=== PATIENT | female | born 2000 | race Caucasian/White ===

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

== ENCOUNTER 2021-05-25 09:17 | Inpatient (IN) | payer BC ==
[~2021-05-25] VITALS: Ht 154.9 cm; Wt 76.2 kg
--- NOTE | ~2021-05-25 | P ---
[facility] [place] [address] PROCEDURE REPORT Name: YANET HELMS Room #: 436-P [facility] IN M.R.#: [id number] Admission: 05/25/21 Attend Phys: Cyn Sheldon Discharge: 05/28/21 Date of : 01 Report #: [id number] THIS REPORT FOR: cc: Otoniel Regalado MD, Logan F. MD McElhinney, Christian C. MD ~ cc: Cyn Sheldon MD DATE OF SERVICE: 05/28/2021 PROCEDURE PERFORMED: Colonoscopy. HISTORY OF PRESENT ILLNESS: The patient is a 20-year-old female with a history of cerebral palsy who has chronic constipation, was having increasing abdominal pain, difficulty with bowel movements. CT scan of the abdomen and pelvis was essentially negative. The patient has never had a colonoscopy before. Plan is for colonoscopy today. DESCRIPTION OF PROCEDURE: The risks and benefits of the procedure were explained to the patient as well as her parents, those risks including but not limited to bleeding, perforation and the risk of sedation. They understood these risks and gave informed consent. Sedation was given using propofol per anesthesia. Next, a digital rectal exam was initially performed, which was normal. Next, using a standard Olympus colonoscope, the scope was placed in the patient's anus and advanced under direct vision to the cecum. The overall prep was excellent. The cecum and ileocecal valve were normal in appearance. Terminal ileum was intubated and normal in appearance. Ascending, transverse, descending and sigmoid colon were all normal. In the distal rectum, a single solitary clean white base ulcer approximately 5 mm in size was noted. No evidence of bleeding. Retroflexion, no abnormalities were noted in the anal canal. The scope was then withdrawn and the procedure terminated. The patient tolerated the procedure well. IMPRESSION: single small distal rectal ulcer. This may be secondary to constipation and solitary rectal ulcer syndrome or may be secondary to recent enema trauma. No evidence of bleeding. RECOMMENDATIONS: 1. The patient will start a bowel regimen of MiraLax on a daily basis and titrate as needed. 2. A script for Analpram was given today to be used b.i.d. for the next week in the rectum to the father today. The patient may be discharged home. [address] [address] PROCEDURE REPORT Name: YANET HELMS Room #: 436-P [facility] IN .R.#: [id number] Admission: 05/25/21 Attend Phys: Cyn Sheldon Discharge: 05/28/21 Date of : 01 Report #: [id number] Thank you for allowing me to participate in her care. By: [id number] [id number] Himanshu Thorpe MD /nt
[~2021-05-25 09:17] MED LIST: BACLOFEN 10MG T10 MG PO; DIAZEPAM 5 MG5 M1 PO; ZOLOFT 50 MG TA50 M1 PO
[2021-05-25 09:35] VITALS: BP 125/76
[2021-05-25 10:52] LABS: HEMOGLOBIN 11.7 gm/dL (12.0-15.0); RDW 13.7 % (10.5-14.5)
[2021-05-25 10:57] LABS: HEMATOCRIT 33.8 % (37.0-47.0); MCH 29.5 pg (26.0-34.0); MCHC 34.6 g/dL (28.0-37.0); MCV 85.5 fL (80.0-100.0); PLATELET COUNT 203 thou/uL (150-400); RBC 3.95 mil/uL (4.20-5.00); WBC 6.9 thou/uL (4.0-11.0)
[2021-05-25 11:03] LABS: CALCIUM 8.7 mg/dL (8.5-10.1); CREATININE 0.8 mg/dL (0.6-1.0); POTASSIUM 3.3 mmol/L (3.5-5.1)
--- NOTE | 2021-05-25 11:06 | NUR ---
VERBAL ORDER- RAJAN HINDS TO GIVE SQ LIDOCAINE WITH PERIPHERAL IV START/AND PER HOSPITAL POLICY. 3CC OF 1% LIDOCAINE GIVEN PRIOR TO IV STICK
[2021-05-25 13:21] LABS: ABSOLUTE NEUTROPHILS 3.2 thou/uL (1.4-8.2); ATYPICAL LYMPHS 10 %
[2021-05-25 13:22] LABS: ANISOCYTOSIS 1+
[2021-05-25 16:12] VITALS: BP 128/73
[2021-05-25 16:49] VITALS: BP 115/64
[2021-05-25 16:50] VITALS: BP 115/64
[2021-05-25 19:58] VITALS: BP 103/50
--- NOTE | 2021-05-25 21:28 | NUR ---
ASSESSMENT COMPLETED. PT WITH DAD IN ROOM. SHE IS CONVERSATIONAL. REPORTS ABOUT 4/10 PAIN-ACHY,TO UPPER AREA OF STOMACH -BUT SAYS IT'S NOT THAT BAD TO BE NEEDING PRN MORPHINE. SHE IS TOLERATING CLEARS WITHOUT ANY NAUSEA OR VOMITING. REPORTS PASSING FLATUS.BOWEL SOUNDS PRESENT X 4. AFEBRILE.WANTED A BREAK FROM SCDS.CALL LIGHT WITHIN REACH, IVF INFUSING. WILL CONTINUE WITH POC TILL EOS.
[2021-05-26 08:02] VITALS: BP 118/76
--- NOTE | 2021-05-26 09:23 | NUR ---
ASSESSMENT: CM REVIEWED CHART AND SPOKE WITH PATIENT AND HER FATHER AT THE BEDSIDE. PT WAS ADMITTED DUE TO ABDOMINAL PAIN AND COMPLAINTS OF CONSTIPATION. PTS FATHER IS AT THE BEDSIDE. PT HAS HX OF CEREBRAL PALSY AND LIVES AT HOME WITH HER FAMILY. PT REPORTS HAVING A RAMP TO ENTER THE HOME. PT HAS A WHEELCHAIR AT HOME, COMMODE, SLIDING BOARD. PT REPORTS THAT HER FAMILY IS THERE TO ASSIST HER NEEDED AND SHE NORMALLY FUNCTIONS WELL AT HOME. PT DENIES HAVING AND HX OF HH/SNF. CM DISCUSSED ROLE. CM WILL CONTINUE TO FOLLOW TO ASSIST NEEDED.
--- NOTE | 2021-05-26 12:54 | 2DMMODE ---
[facility] [place] [address] 2 D/M-MODE ECHOCARDIOGRAM Name: YANET HELMS Room #: 436-P ADM IN M.R.#: [id number] Admission: 05/25/21 Attend Phys: Cyn Sheldon Discharge: Date of : 01 Report #: [id number] THIS REPORT FOR: cc: Otoniel Regalado MD, Logan F. MD Park, Jin S. MD ~ APPROVED REPORT Study performed: 05/26/2021 12:11:59 EXAM: Comprehensive 2D, Doppler, and color-flow Echocardiogram Patient Location: Bedside Room #: [facility] Status: routine BSA: 1.75 HR: 108 bpm BP: 118/76 mmHg Rhythm: Sinus Tach Other Information Study Quality: Good Indications Splenic infarct. 2D Dimensions IVSd: 7.94 (7-11mm) LVOT Diam: 18.72 (18-24mm) LVDd: 44.38 mm PWd: 8.45 (7-11mm) LVDs: 28.35 (25-40mm) Left Atrium: 24.66 (27-40mm) Aortic Root: 27.99 mm Aortic Valve AoV Peak Darrion.: 1.37 m/s AO Peak Gr.: 7.51 mmHg LVOT Max P.46 mmHg LVOT Max V: 1.06 m/s DANI Vmax: 2.12 cm2 Mitral Valve E/A Ratio: 1.3 MV Decel. Time: 156.13 ms MV E Max Darrion.: 0.98 m/s MV A Darrion.: 0.76 m/s [facility] [address] [place] [address] 2 D/M-MODE ECHOCARDIOGRAM Name: YANET HELMS Room #: 436-P [facility] IN .R.#: [id number] Admission: 05/25/21 Attend Phys: Cyn Brooks Discharge: Date of : 01 Report #: [id number] MV PHT: 45.28 ms Pulmonary Valve PV Peak Darrion.: 1.04 m/s PV Peak Gr.: 4.35 mmHg Pulmonary Vein P Vein S: 0.49 m/s P Vein D: 0.49 m/s P Vein S/D Ratio: 1.00 Tricuspid Valve TR Peak Darrion.: 1.87 m/s RAP Estimate: 5.00 mmHg TR Peak Gr.: 14.00 mmHg PA Pressure: 19.00 mmHg Left Ventricle The left ventricle is normal size. There is normal LV segmental wall motion. There is normal left ventricular wall thickness. Left ventricular systolic function is normal. LVEF is 60-65%. Right Ventricle The right ventricle is normal size. The right ventricular systolic function is normal. Atria The left atrium size is normal. The right atrium size is normal. Aortic Valve The aortic valve is normal in structure. No aortic regurgitation is present. There is no aortic valvular stenosis. Mitral Valve The mitral valve is normal in structure. There is no mitral valve regurgitation noted. No evidence of mitral valve stenosis. Tricuspid Valve The tricuspid valve is normal in structure. Trace tricuspid regurgitation. Pulmonic Valve The pulmonary valve is normal in structure. There is no pulmonic valvular regurgitation. Great Vessels The aortic root is normal in size. The ascending aorta is normal in [facility] [address] [place] [address] 2 D/M-MODE ECHOCARDIOGRAM Name: YANET HELMS Room #: 436-[facility] IN .R.#: [id number] Admission: 05/25/21 Attend Phys: Cyn Brooks Discharge: Date of : 01 Report #: [id number] size. IVC is normal in size and collapses >50% with inspiration. Pericardium There is no pericardial effusion. <Conclusion> The left ventricle is normal size. There is normal left ventricular wall thickness. Left ventricular systolic function is normal. The right ventricle is normal size. The left atrium size is normal. The aortic valve is normal in structure. There is no mitral valve regurgitation noted. <ELECTRONICALLY SIGNED> By: Ty García MD 05/26/21 [id number] Ty García MD /INF
[2021-05-26 13:10] VITALS: BP 118/76
--- NOTE | 2021-05-26 18:07 | NUR ---
ASSUMED CARE OF PT AT 0700 THIS MORNING. PT WAS ADMITTED LAST NIGHT FOR SEVERE ABD CRAMPING AND PAIN. PT HAD NO CHANGES SINCE REPORT LAST NIGHT. ASSESSMENTS AND REPORT NOTED IN CHART AND OTHERWISE UNREMARKABLE. PT'S GI SPECIALIST STATED THAT SHE NEEDS A SUPPOSITORY AND IF THE SUPPOSITORY DOESN'T WORK TO GO AHEAD WITH THE ENEMA. PEG WAS GIVEN PO WITH APPLE JUICE. CALL LIGHT AND OTHER NEEDS ARE WITHIN REACH. MEDS AND TX GIVEN NEEDED AND SCHEDULED. WILL MONITOR AND NOTE ANY CHANGES.
[2021-05-26 19:38] VITALS: BP 127/81
[2021-05-26 20:58] VITALS: BP 139/83
--- NOTE | 2021-05-27 01:34 | NUR ---
ASSESSMENT COMPLETED. PARENT IN ROOM. PT ALERT AND ORIENTED X 4. MAKES NEEDS KNOWN. PT GETS UP TO THE BATHROOM USING W/CHAIR, ASSIST X 1. SHE HAD A FEVER AT THE START OF SHIFT, TYLENOL GIVEN, TEMP RECHECK TWICE AFTERWARDS SHOWS A RESOLVE.PT REPORTS PAIN TO ABDOMEN IN THE RANGE OF 4/10. OFFERED TAP WATER ENEMA BUT PT RELUCTANT WANTING TO WAIT. SHE FINALLY REPORTS GETTING A SMALL BM. SHE IS PASSING GAS. NO OVERT SIGNS OF DISTRESS AT THIS TIME. RESTING QUIETLY IN ROOM.WILL CONTINUW WITH POC TILL EOS.
[2021-05-27 08:27] VITALS: BP 127/79
--- NOTE | 2021-05-27 10:53 | NUR ---
ASSUMED PT CARE THIS AM. PT IS ALERT & ORIENTED X4. PT HAS IV SITE ON R FA SALINE LOCKED. PT IS USES WHEELCHAIR. PT PARENTS AT THE BEDSIDE. PT HAD BM TODAY. COLLECTED UA AND SENT TO LAB. PT WILL HAVE KUB PER REFERRAL CLERK. PT IS ON ROOM AIR. NO C/O OF NAUSEA AND VOMITING. PT TOLERATED DIET WELL. WILL CONTINUE TO MONITOR PT. FOLLOW POC.
[2021-05-27 11:09] LABS: URINE BILIRUBIN NEGATIVE (Negative); URINE BLOOD 2+ (Negative); URINE CLARITY CLEAR; URINE COLOR YELLOW; URINE GLUCOSE-RANDOM* NEGATIVE (Negative); URINE KETONES NEGATIVE (Negative); URINE LEUKOCYTES NEGATIVE (Negative); URINE NITRITE NEGATIVE (Negative); URINE PROTEIN (DIPSTICK) NEGATIVE (Negative); URINE SPECIFIC GRAVITY <= 1.005 (1.005-1.035)
[2021-05-27 11:21] LABS: BACTERIA 1-9 Few /HPF (None Seen); CASTS None Seen /LPF (None Seen); CRYSTALS None Seen /LPF (None Seen); SQUAMOUS 0-3 Few /LPF (0-3); URINE RBC 1-2 Rare /HPF (NONE SEEN); URINE WBC 1-5 Rare /HPF (NONE SEEN)
[2021-05-27 12:40] LABS: HEMATOCRIT 36.6 % (37.0-47.0); MCH 28.4 pg (26.0-34.0); MCHC 32.8 g/dL (28.0-37.0); MCV 86.7 fL (80.0-100.0); RBC 4.22 mil/uL (4.20-5.00); RDW 13.9 % (10.5-14.5)
[2021-05-27 16:53] VITALS: BP 133/84
[2021-05-27 17:25] LABS: URINE BLOOD 3+ (Negative); URINE CLARITY CLOUDY; URINE COLOR YELLOW; URINE GLUCOSE-RANDOM* NEGATIVE (Negative); URINE KETONES TRACE (Negative); URINE NITRITE-REFLEX NEGATIVE (Negative); URINE PROTEIN (DIPSTICK) NEGATIVE (Negative); URINE UROBILINOGEN >= 8.0 E.U./dl (0.2-1.0)
[2021-05-27 17:29] LABS: URINE LEUKOCYTES-REFLEX 1+ (Negative)
[2021-05-27 17:36] LABS: ICTOTEST (BILI CONFIRMATORY) Negative (Negative); URINE BILIRUBIN NEGATIVE (Negative)
[2021-05-27 17:45] LABS: BACTERIA-REFLEX >30 Many /HPF (None Seen); SQUAMOUS 4-10 Moderate /LPF (0-3); URINE RBC 1-2 Rare /HPF (NONE SEEN); URINE WBC-REFLEX 0-5 Rare /HPF (0-5)
[2021-05-27 19:30] VITALS: BP 132/85
--- NOTE | 2021-05-28 02:03 | NUR ---
Assumed care of pt at 1900. Pt aox4, parents at bedside. GLENN assessment complete. pt continuing bowel prep d/t colonscopy in am and will be NPO at [place]. No complains of nausea at this time. C/O abdominal discomfort, pt reports tolerable level. pt has baclofen pump to RLQ. Pt uses bsc and is having liquid brown stools. All needs met, no other needs at this time. call light in reach.
--- NOTE | 2021-05-28 04:16 | NUR ---
PT DENIED PAIN SO FAR.OBSERVED PT'S DAD HELPING HER TO THE BSC,OFFERED TO TAKE PT EACH TIME SHE NEEDS TO GO, HER DAD DECLINED.PT DENIED PAIN SO FAR.PT NPO SINCE [place].PT STILL HAVING INTERMITTENT LIQUID BROWN STOOL.PT RESTING ON HER BED AT THIS TIME.CALL LIGHT WITHIN REACH.
[2021-05-28 08:00] VITALS: BP 119/68
--- NOTE | 2021-05-28 10:05 | NUR ---
ASSUMED PT CARE THIS AM. PT IS ALEERT & ORIENTED X4. PT HAS IV SITE ON RFA SALINE LOCKED. PT IS WHEELBOUND. AFEBRILE THIS AM. PT HAS BEEN NPO. PT WILL HAVE COLONOSCOPY TODAY. PT MOM AT THE BEDSIDE. WILL CONTINUE TO MONITOR PT. FOLLOW POC.
--- NOTE | 2021-05-28 14:17 | NUR ---
on-going assessment: CM REVIEWED CHART AND SPOKE WITH ATTENDING. PER ATTENDING PT IS HAVING COLONOSCOPY AND THEN WILL LIKELY DISCHARGE HOME AFTER PENDING RESULTS. PT LIVES AT HOME WITH SUPPORT OF HER FAMILY AND HAS ALL NEEDED EQUIPMENT AT HOME. CM WILL CONTINUE TO FOLLOW. PT SHOULD HAVE NO NEEDS FROM CM PRIOR TO DISCHARGE.
[2021-05-28 14:33] VITALS: BP 125/77
[2021-05-28 14:58] VITALS: BP 125/77
== END 2021-05-28 15:50 | disposition home or self-care (01) | DRG 395 ==
LOC: ER 09:17 → 4S 16:26 → EROBS 16:26 → 4S 16:51
PROVIDERS: Emergency Medicine; Nurse Practitioner; ADMIT Hospitalist; ATTEND Hospitalist
PROC: 0DJD8ZZ Inspection of Lower Intestinal Tract, Via Natural or Artificial Opening Endoscopic (ICD-10-PCS; principal; 2021-05-28)
DX: K62.6 Ulcer of anus and rectum (principal); K59.00 Constipation, unspecified; Z20.822 Contact with and (suspected) exposure to COVID-19; Z79.899 Other long term (current) drug therapy; E86.0 Dehydration; G80.9 Cerebral palsy, unspecified; Z88.8 Allergy status to other drugs, medicaments and biological substances; D73.5 Infarction of spleen
CPT/HCPCS: 10102; 62110; 62900; 70005